=== PATIENT | male | born 1990 | race Caucasian/White ===

== ENCOUNTER 2024-06-04 13:13 | Emergency (ER) | payer OTHER, SELFPAY ==
[2024-06-04 13:21] VITALS: BP 148/91; PULSE 53; RESP 18; TEMP 36.6; O2SAT 98; BMI 31.2
--- NOTE | 2024-06-04 13:37 | CRLHL7_ITS ---
For Patients: As a result of the Century Cures Act, medical imaging exams and procedure reports are released immediately into your electronic medical record. You may view this report before your referring provider. If you have questions, please contact your health care provider. INDICATION: Pain swelling and decreased range of motion COMPARISON: None. TECHNIQUE: Three views right knee FINDINGS: No fracture. Normal alignment. Joint spaces are normal. No focal bone lesions. Normal bone mineralization. Very large knee joint effusion in the suprapatellar pouch without a fat fluid level. Mild edema in Hoffa`s fat pad. No foreign body. IMPRESSION: Large right knee joint effusion. No acute osseous findings seen. Dictated by Meghann Elizabeth MD @ 06/04/2024 2:31:41 PM (Electronically Signed)
--- NOTE | 2024-06-04 13:38 | ED.GENADULT ---
HPI - General Adult General Chief complaint: Lower Extremity Swelling Stated complaint: Unable to move right knee Time Seen by Provider: 06/04/24 13:19 History of Present Illness HPI narrative: This 33-year-old male comes in reporting pain and swelling in his right knee and he states that he is unable to completely straighten his leg and flex his knee normally. He does not report any injury event. He states that the knee seems to catch and lock with decreased range of motion. He has had problems with his left knee in the past but not with his right knee. Related Data Home Medications ?Medication ?Instructions ?Recorded ?Confirmed albuterol sulfate 90 mcg/actuation 2 puff inhalation Q6H PRN wheezing 05/17/24 05/26/24 aerosol inhaler (Ventolin HFA) losartan 100 mg tablet 100 mg PO DAILY 05/17/24 05/26/24 acetaminophen 500 mg oral powder 1,000 mg PO Q6H PRN 05/18/24 05/26/24 packet (Tylenol Extra Strength) ibuprofen 200 mg capsule 800 mg PO Q6H PRN 05/18/24 05/26/24 Previous Rx's ?Medication ?Instructions ?Recorded hydrocodone 5 mg-acetaminophen 325 1 tab PO Q4-6H PRN pain #15 tabs 06/04/24 mg tablet Allergies Allergy/AdvReac Type Severity Reaction Status Date / Time Penicillins Allergy Unknown Rash Verified 06/01/24 09:16 Review of Systems Status of ROS: Reports: 10 or more systems reviewed and unremarkable except as noted in History and below Narrative: Constitutional: No fevers, no weight gain or loss. Eyes: No discharge. No vision changes. HENT: No congestion, no sore throat, no ear pain. Cardiovascular: No chest pain, no palpitations. Respiratory: No shortness of breath, no wheezes, no cough. Gastrointestinal: No abdominal pain, no vomiting, no diarrhea. Genitourinary: No dysuria, no hematuria. Musculoskeletal: Right knee pain and swelling with decreased range of motion. Skin: No rashes, no pruritis. Neurological: No dizziness, weakness, sensory change, speech change. Endo/Heme/Allergies: No bruising or bleeding. No polydipsia. Pysch: no suicidality, no anxiety, no insomnia. All other systems reviewed and are negative. [facility] Medical History (Updated 06/04/24 @ 14:45 by Carlos Andres MD) Kidney stone ?N20.0 - Calculus of kidney (ICD-10) Family History (Updated 05/18/24 @ 09:50 by Alisha Gonzalez ~ [facility], [facility]) Father Diabetes Uncle Diabetes Exam Narrative: Exam Narrative: Constitutional: Well-developed, well-nourished, no acute distress. HEENT: Normocephalic, atraumatic. Neck: Normal range of motion. Nontender. Supple. Heart: Intact distal pulses. Lungs: No chest discomfort. No wheezes, rhonchi, or rales. Abdomen: Nontender. Back: Normal range of motion. Extremities: Right knee pain with effusion. He is unable to completely extend or flex his knee due to pain. Skin: Intact. No rash. Warm. No erythema or pallor. Neurologic: No altered sensation. No weakness. Alert and oriented. Psychiatric: No suicidality. No anxiety or depression. No insomnia. Nursing notes and vitals signs are reviewed. Const: Vital Signs, click to edit/add: Vital Signs - 24 hr 06/04/24 13:21 Temperature 98 F Pulse Rate [Right Pulse Oximeter] 53 L Respiratory Rate 18 Blood Pressure [Ri ght Upper Arm] 148/91 H Pulse Oximetry 98 Oxygen Delivery Me thod Room Air Course Vital Signs Vital signs: Initial Vital Signs Temperature 98 F 06/04/24 13:21 Temperature Source Temporal Artery Scan 06/04/24 13:21 Pulse Rate 53 L 06/04/24 13:21 Pulse Rhythm Regular 06/04/24 13:21 Pulse Strength 3+ Normal 06/04/24 13:21 Respiratory Rate 18 06/04/24 13:21 Blood Pressure 148/91 H 06/04/24 13:21 Blood Pressure Mean 110 H 06/04/24 13:21 Blood Pressure Position High-Fowlers 06/04/24 13:21 Pulse Oximetry 98 06/04/24 13:21 Oxygen Delivery Method Room Air 06/04/24 13:21 Vital Signs Temperature 98 F 06/04/24 13:21 Pulse Rate 53 L 06/04/24 13:21 Respiratory Rate 18 06/04/24 13:21 Blood Pressure 148/91 H 06/04/24 13:21 Pulse Oximetry 98 06/04/24 13:21 Oxygen Delivery Method Room Air 06/04/24 13:21 Temperature 98 F 06/04/24 13:21 Pulse Rate 53 L 06/04/24 13:21 Respiratory Rate 18 06/04/24 13:21 Blood Pressure 148/91 H 06/04/24 13:21 Pulse Oximetry 98 06/04/24 13:21 Oxygen Delivery Method Room Air 06/04/24 13:21 Medical Decision Making MDM Narrative Medical decision making narrative: This patient comes in with knee pain and swelling as described above. X-ray is obtained and shows no acute findings other than the knee effusion which is rather large. Patient has difficulty fully straightening his leg and flexing at also. His symptoms are suspicious for a meniscus tear. I advised him to follow-up with orthopedic clinic for ongoing management. His knee is not unstable where he would need a knee immobilizer. He did receive crutches and prescription for tablets of [place]. Imaging Data XR R Knee: Radiologist's impression: Large right knee joint effusion. No acute osseous findings seen. Discharge Plan Discharge Clinical Impression: Effusion of right knee Patient Disposition: Home, Self-Care Condition: Unchanged Additional Instructions: Use crutches as needed and take pain medication as needed and directed. Follow-up with orthopedic clinic for ongoing management. Call [phone] for appointment. Return if worsening. Prescriptions: New hydrocodone-acetaminophen 5-325 mg tablet 1 tab PO Q4-6H PRN (Reason: pain) Qty: 15 0RF No Action albuterol sulfate [Ventolin HFA] 90 mcg/actuation HFA aerosol inhaler 2 puff inhalation Q6H PRN (Reason: wheezing) losartan 100 mg tablet 100 mg PO DAILY ibuprofen 200 mg capsule 800 mg PO Q6H PRN Tylenol Extra Strength 500 mg powder in packet 1,000 mg PO Q6H PRN Follow Up/Referrals: Elsie Dwyer PA-C [Primary Care Provider] - Stand Alone Forms: Struq Info Instructions
== END 2024-06-04 14:54 | disposition home or self-care (01) ==
PROVIDERS: Emergency Provider Emergency Medicine Emergency Medical Services; PCP Physician Assistant Medical
DX: M25.461 Effusion, right knee (principal)
CPT/HCPCS: 73562; 99283; 99284